=== PATIENT | female | born 1940 | race Caucasian/White ===

== ENCOUNTER 2019-11-18 07:37 | Day surgery (SDC) | payer OTHER ==
[2019-11-17 11:56] VITALS: BMI 26.9
[2019-11-18] MEDS ORDERED: TROPICAMIDE 1% OPHTH SOLN 15 ML BOTTLE ONE (07:58)
[2019-11-18] MEDS: CYCLOPENTOLATE HCL 1% OPHTH SOLN 2 ML BOTTLE OD SCH ×5 (08:10→08:30)
[2019-11-18] MEDS: TROPICAMIDE 1% OPHTH SOLN 15 ML BOTTLE OD SCH ×5 (08:10→08:30)
[2019-11-18] MEDS: OFLOXACIN 0.3% OPHTHALMIC SOLUTION 5 ML BOTTLE OD SCH ×5 (08:10→08:30)
[2019-11-18] MEDS: KETOROLAC TROMETHAMINE 0.5% EYE DROP 1 DROP DROPS OD SCH ×5 (08:10→08:30)
[2019-11-18] MEDS: PHENYLEPHRINE 2.5% OPHTH SOLN 15 ML BOTTLE OD SCH ×5 (08:10→08:30)
[2019-11-18] MEDS ORDERED: MIDAZOLAM HCL 2 MG/2 ML SINGLE DOSE VIAL ONE (09:18)
[2019-11-18] MEDS ORDERED: ACETAMINOPHEN 325 MG TABLET (FP) PO PRN (10:08)
[2019-11-18 10:16] VITALS: TEMP 98.1
[2019-11-18 11:26] VITALS: BP 135/78; PULSE 60
--- NOTE | 2019-11-19 11:09 | OP ---
DATE OF OPERATION: 11/18/2019 PREOPERATIVE DIAGNOSIS: Cataract, right eye. POSTOPERATIVE DIAGNOSIS: Cataract, right eye. PROCEDURE: Cataract extraction via phacoemulsification with insertion of posterior chamber lens implant, right eye. SURGEON: Marty Hall MD RN REHABILITATION: Lakia Catalan MD ANESTHESIA: Topical with sedation. ESTIMATED BLOOD LOSS: Less than 1 mL. COMPLICATIONS: None. SPECIMEN: None. DESCRIPTION OF PROCEDURE: The patient was identified in the holding area. After all risks, benefits, and alternatives were explained to the patient, informed consent was obtained. The right eye was marked with a marking pen. The patient then entered the operating room on an eye stretcher. After formal timeout was performed, topical tetracaine eye drops were instilled onto the right eye. The right eye was then prepped and draped in the usual sterile fashion. Eyelid speculum was placed beneath the eyelids of the right eye. A superotemporal paracentesis incision was created using a 15-degree blade. Topical preservative-free epinephrine and preservative-free lidocaine were then injected into the anterior chamber. Viscoelastic was then injected in the anterior chamber. A 2.4-mm keratome blade was then used to make inferotemporal incision. A 360-degree continuous curvilinear capsulorrhexis was then created. Using bent cystotome and Utrata forceps, hydrodissection was performed using balanced saline solution on a cannula. Phacoemulsification was introduced to disassemble and remove the nucleus in its entirety. Irrigation/aspiration was then used to removing any remaining cortical material from the eye. The capsular bag was re-formed using viscoelastic. An Sarath model TFNT00 with a power of 20.5 diopters, serial number [id number], was inspected, found to be defect free and injected in the capsular bag. Irrigation/aspiration was then used to remove any remaining viscoelastic including posterior to the optic. The intraocular lens was rotated so that the haptics were at 90 degrees, and then the intraocular lens was centered using the Purkinje light reflexes and asking the patient to look at the microscope lights and centering the Purkinje light reflexes onto the central ring of the multifocal lens. After the lens was perfectly centered, all wounds were hydrated with balanced saline solution, noted to be watertight. The anterior chamber was deep. The eye had adequate pressure. The lens had red reflex present, and the lens was perfectly centered in the capsular bag. Topical antibiotic eye drops were administered to the right eye. The eyelid speculum was removed from the right eye. Right eye was shielded. Patient tolerated the procedure well, left the operating room in stable condition, to follow up in the eye clinic tomorrow morning at 10:00. MARTY HALL M.D. [id number]
== END 2019-11-18 11:00 | disposition home or self-care (01) ==
LOC: FASU 07:37
PROVIDERS: ATTEND Ophthalmology
PROC: 08RJ3JZ Replacement of Right Lens with Synthetic Substitute, Percutaneous Approach (ICD-10-PCS; principal; 2019-11-18 09:43)
DX: H26.9 Unspecified cataract (principal)
CPT/HCPCS: 82962